=== PATIENT | male | born 1980 | race African-American/Black ===

== ENCOUNTER → 2020-05-18 06:42 | Outpatient (CLI) | payer OTHER, SELFPAY ==
--- NOTE | 2020-05-18 06:50 | DI.MRI.S_ITS ---
PROCEDURE: MR SHOULDER LT WO CON INDICATIONS: Pain in left shoulder TECHNIQUE: Noncontrast oblique coronal T2 fast spin echo with fat saturation, oblique sagittal T1 spin echo and T2 fast spin echo with fat saturation, axial T1 spin echo and T2 fast spin echo with fat saturation through the shoulder. COMPARISON: None. FINDINGS: Image quality: Excellent. Rotator cuff: Tendinosis and low-grade articular and bursal surface partial thickness tear involving distal supraspinatus at its insertion on the humeral head is seen. Distal infraspinatus and subscapularis tendinosis also. No full-thickness rotator cuff tendon rupture. Sagittal images demonstrate no significant muscle atrophy. Bones and bursae: No bone marrow contusions or fractures. Mild acromioclavicular joint osteoarthritic changes are seen. The acromion demonstrates conventional anatomy, without an os acromiale. Small amount of joint effusion and subacromial subdeltoid bursal fluid is present. Capsule and soft tissues: There is subtle signal abnormality involving superior anterior labrum at 1 o'clock position concerning for focal labral tear. The glenohumeral ligaments are intact. The long head of the biceps tendinosis is seen.. The rotator interval appears normal, without fibrosis. The coracohumeral ligament is normal in thickness. IMPRESSION: 1. Tendinosis and low-grade articular and bursal surface partial thickness tear involving distal supraspinatus at its insertion on the humeral head. Distal infraspinatus and subscapularis tendinosis. No full-thickness rotator cuff tendon rupture. No muscle atrophy. 2. Mild acromioclavicular joint osteoarthritis and small amount of joint effusion/subacromial subdeltoid bursal fluid. 3. Subtle signal abnormality involving superior anterior labrum at 1 o'clock concerning for focal superior anterior labral tear. Proximal intra-articular portion of long head of biceps tendinosis. Dictated by: Jimi Cole M.D. on 05/23/2020 at 9:13 Approved by: Jimi Cole M.D. on 05/23/2020 at 9:20
== END ==
PROVIDERS: Referring Provider Family Medicine; Visit Provider Family Medicine
DX: M25.512 Pain in left shoulder (principal); M75.112 Incomplete rotator cuff tear or rupture of left shoulder, not specified as traumatic; M19.012 Primary osteoarthritis, left shoulder
CPT/HCPCS: 73221

== ENCOUNTER → 2020-05-23 07:30 | Outpatient (CLI) | payer OTHER, SELFPAY | PROVIDERS: PCP Internal Medicine; Referring Provider Internal Medicine; Visit Provider Internal Medicine | DX: M25.512 Pain in left shoulder (principal); Z53.9 Procedure and treatment not carried out, unspecified reason ==